=== PATIENT | male | born 1960 | race Caucasian/White ===

== ENCOUNTER 2017-10-17 08:53 | Inpatient (IN) ==
--- NOTE | 2017-10-17 17:38 | HP ---
Chief Complaint - Chief Complaint Date of Service: 10/17/17 Time of Service: 17:30 Chief Complaint: pneumothorax History of Present Illness: Bruce Mosley, is a 57-year-old white male, with previous medical history of tobacco dependency, COPD, who was admitted on 10/17/2017 because of pneumothorax. 4 weeks prior to admission, the patient developed left rib pain. Rib series and chest x-ray showed a pathologic fracture with a pulmonary nodule. The patient had a CT scan of the chest which confirmed the pulmonary nodule . A PET scan was done which showed increased activity of the pulmonary nodule and the rib fracture site. Today the patient underwent CTS guided lung biopsy and post procedure CXR showed pneumothorax. The patient was then admitted for observation. He is currently hemodynamically stable. - Patient's Past Medical History Patient History - Medical: Osteoarthritis, Other - Pathologic rib fracture, Herpes Zoster Patient History - Cardiac/Respiratory: COPD Patient History - Cancer: Other - Pulmonary Nodule Patient History - Surgical Procedures: Cholecystectomy, Other - knee surgery - Family History Mother Family History - Medical: No pertinent hx Family History - Cardiac/Respiratory: No pertinent hx Family History - Cancer: No pertinent family hx Father Family History - Medical: Diabetes Type 2, Other Family History - Cardiac/Respiratory: Coronary Heart Disease Family History - Cancer: Bone, Prostate - Social History Living Situations: spouse Abuse History: No History of abuse Psych History: No pertinent hx Does anyone smoke in the home?: Yes Smoking Status: Current every day smoker Have you smoked in the past 12 months: Yes Alcohol Use: other - former Review Of Systems (GEN) - Review of Systems Generalized/Overall Review: Absent: Chills, Fever Respiratory: Absent: Cough, Shortness of Breath Cardiac: Absent: Chest Pain, Palpitations Abdominal: Absent: Nausea, Vomiting Genitourinary: Absent: Urgency, Frequency Allergies/Adverse Reactions: Allergies Allergy/AdvReac Type Severity Reaction Status Date / Time No Known Allergies Allergy Unverified 10/17/17 17:36 Home Medications: HOME MEDICATIONS Budesonide/Formoterol Fumarate [Symbicort 160-4.5 Mcg Inhaler] 10.2 gm IH BID [Last Taken 10/17/17 08:00] Exam - Exam Constitutional: Present: Alert, Oriented x3, Cooperative ENT Exam: Present: hearing grossly normal Eye Exam: bilateral eye: normal inspection, PERRL, EOMI Neck: Present: supple Respiratory: Present: decreased breath sounds, No rales, No wheezing Cardiovascular/Chest: Present: regular rate, rhythm, no JVD, no murmur Abdomen: Present: Normal bowel sounds, soft, nontender, nondistended Extremity: Present: no pedal edema, no calf tenderness Diagnostic Studies: Laboratory Results PT 10.0 Seconds (9.0-11.0) 10/17/17 08:56 INR (Anticoag Therapy) 1.00 INR (0.90-1.10) 10/17/17 08:56 Assessment/Plan - Assessment/Plan (1) Pneumothorax of right lung after biopsy Assessment: will continue to montr patient. will sigh out to Hospitalist to repeat CXR if with any cardiopulmonary distress tonigh. Otherwise, I have already talked to Dr. Ashraf who will order a CXR in am. If continues to expand will do thoracostmy tube. Problem: Acute (2) COPD (chronic obstructive pulmonary disease) Assessment: will continue with his Symbicort. Problem: Chronic (3) Tobacco dependency Assessment: refuses nicotine patch. Problem: Chronic
[2017-10-17] MEDS: NICOTINE 21 MG PATC TD SCH (20:06)
--- NOTE | 2017-10-17 22:06 | PN ---
Progess Note - Interim Date: 10/17/17 Time: 22:03 Narrative: 10/17/17 22:03 patient was seen earlier and stated she was feeling fine, he however was taking very shallow breaths. Per nurse approximatly 2100 pt was hypoxic at 88-89% on 3L. Spoke with radiologist,Repeated CXR: showed pneumothorax was getting larger. Dr Ashraf aware and plans for chest tube insertion tomorrow.
[2017-10-17] MEDS: FLUTICASONE/SALMETEROL 14 PUFF DISK.W.DEV IH SCH (22:28)
--- NOTE | 2017-10-18 05:55 | PN ---
Subjective - Date and Time Seen Date: 10/18/17 Time: 05:49 Subjective Narrative: patient seen this morning with reports of having a hard time breathing, he his on supplemented oxygen 5L and spo2 90-92%. overnight repeated CXR showed increased pneumothorax and Dr Ashraf aware. he his schedule for another CXR this morning and plan for chest tube insertion. Dr Ashraf aware of pt reports that its getting harder to breath. Objective - Review of Systems Generalized/Overall Review: Reports: No Symptoms Reported EENTM: Reports: No Symptoms Reported Respiratory: Reports: Shortness of Breath Cardiac: Reports: No Symptoms Reported Abdominal: Reports: No Symptoms Reported Genitourinary Symptoms: Reports: No Symptoms Reported Musculoskeletal Complaints: Reports: No Symptoms Reported Neurological: Reports: No Symptoms Reported Skin: Reports: No Symptoms Reported Endocrine: Reports: No Symptoms Reported - Vitals Vitals: Last Vital Signs Temp 36.6 C 10/18/17 02:01 Pulse 57 L 10/18/17 02:01 Resp 18 10/18/17 02:01 BP 144/91 10/18/17 02:01 Pulse Ox 94 10/18/17 02:01 - Exam Constitutional: Present: Alert, Oriented x3, Cooperative, Well developed, Mild distress ENT Exam: Present: hearing grossly normal Neck: Present: non-tender, full range of motion Breasts: Present: Exam deferred Respiratory: Present: chest non-tender, no accessory muscle use, decreased breath sounds, wheezing Cardiovascular/Chest: Present: normal peripheral pulses, regular rate, rhythm, no chest tenderness, no edema Abdomen: Present: Normal bowel sounds, soft /Rectal: Present: Exam deferred Extremity: Present: normal range of motion, non-tender, normal inspection, no calf tenderness Skin Exam: Present: normal color, warm/dry, no cyanosis Lymphatic: Present: no adenopathy Neurologic: Present: normal mood/affect, oriented x 3 Appearance: Present: appropriate appearance, appropriate insight Eye contact: Present: cooperative, good eye contact Thoughts: Present: normal thought pattern Assessment/Plan - Problems/Diagnosis (1) COPD (chronic obstructive pulmonary disease) Problem: Chronic (2) Pneumothorax of right lung after biopsy Problem: Acute Narrative: Repeated CXR showed and 4.3cm pneumothorax no midline shift. Dr Ashraf to insert chest tube this morning Continue with supplemented oxygen smoking cessation edu and nicotine patch (3) Tobacco dependency Problem: Chronic
[2017-10-18] MEDS ORDERED: NICOTINE 21 MG PATC TD SCH ×2 (06:00→09:00)
[2017-10-18] MEDS: MORPHINE SULFATE 4 MG/ML SYRG IV PRN (07:44)
--- NOTE | 2017-10-18 07:45 | OR ---
Operative Report - Dictated Report Narrative: OPERATIVE REPORT DATE OF OPERATION: 10/18/2017 PREOPERATIVE DIAGNOSIS: Right pneumothorax following lung biopsy POSTOPERATIVE DIAGNOSIS: Same (relieved) OPERATION: Placement of right chest tube SURGEON: Gomez Ashraf MD ANESTHESIA: Local 0.5% Marcaine with epinephrine INDICATIONS FOR PROCEDURE: The patient is a 57-year-old male who underwent CT guided needle biopsy of a right lung nodule yesterday. He developed a small pneumothorax which has progressed on serial chest x-rays. FINDINGS: Successful tube placement with reexpansion NARRATIVE OF PROCEDURE: The patient was identified preoperatively and a timeout was taken. The patient's right chest was prepped with chlorhexidine and a point chosen in the anterior axillary line for tube insertion. The skin and subcutaneous tissue and periosteum of the chest and rib were infiltrated with 0.5% Marcaine with epinephrine. A 1 cm skin incision was made. A 20 Sami trocar catheter was then placed in the right chest and directed anteriorly and superiorly. It was connected to underwater seal with immediate release of air. The tube was secured to the skin with a 0 silk suture and dressed with sterile gauze and Medipore tape. Patient tolerated the procedure well. There was no measurable blood loss. A postprocedure chest x-ray demonstrated good tube position with right lung reexpansion. Reviewed and electronically signed
--- NOTE | 2017-10-18 08:20 | PN ---
Margos Note - Interim Date: 10/18/17 Time: 08:15 Narrative: 10/18/17 08:11 RADIOLOGIST PROGRESS NOTE: Patient was in bed, with head up, seems to be in good spirits, complaining of no acute symptoms at the time when seen by me. Patient s/p right sided chest tube placement by Dr. Ashraf for worsening right pneumothorax s/p CT guided right upper lobe biopsy of a spiculated, PET positive suspicious nodule. Patient states he feels much better after the chest tube placement, became more symptomatic last night. Patient was in no acute distress. The dressing on the right upper chest appears to be clean, dry, and intact. Vital signs reviewed with no concerning finding. This morning's CXR was reviewed by me, although final interpretation/report pending from on-call radiologist. It shows placement of right sided chest tube, with significantly decreased pneumothorax compared to the CXR from yesterday evening. Discussed with patient that pneumothorax is a known complication of CT guided biopsy, and although most can be managed conservatively, minority of cases can progress where intervention is necessary (as discussed prior to the biopsy procedure). I felt that it was right course of action to admit for observation and place chest tube when determined that it was not improving. Patient expressed understanding. Addressed questions regarding management of tube, and I stated that the chest tube management will be primarily done by Dr. Ashraf, and I would defer to his expertise. Addressed all questions regarding the biopsy. Will continue to follow along with primary care team and attending surgeon. Biopsy results still pending at this time. 10/18/17 08:20
[2017-10-18] MEDS: oxyCODONE HCL/ACETAMINOPHEN 1 TAB TABLET PO PRN ×4 (08:22→20:57)
[2017-10-18] MEDS ORDERED: FLUTICASONE/SALMETEROL 14 PUFF DISK.W.DEV IH SCH (09:45)
[2017-10-18] MEDS: ENOXAPARIN SODIUM 40 MG/0.4 ML SYRG SC SCH (10:21)
[2017-10-18] MEDS: NON-FORMULARY 1 DOSE DOSE INH SCH ×2 (10:21→20:58)
[2017-10-18] MEDS: FLUTICASONE/SALMETEROL 14 PUFF DISK.W.DEV IH SCH (10:36)
[2017-10-18] MEDS: NICOTINE 21 MG PATC TD SCH (20:06)
[2017-10-19] MEDS: oxyCODONE HCL/ACETAMINOPHEN 1 TAB TABLET PO PRN ×2 (01:23→10:51)
[2017-10-19 04:33] LABS: Hematocrit 43.7 % (42.0-52.0); Hemoglobin 14.9 gm/dL (13.5-18.0); Mean Cell Volume 99.8 fl (78-100); Mean Corpuscular Hgb Conc 34.1 g/dl (32-36); Mean Platelet Volume 10.1 fl (8-11.3); Neutrophil # 4.1 K/mm3 (1.3-6.0); Neutrophil % 57.6 % (42-75.0); Platelet Count 192 K/mm3 (150-450); Red Blood Count 4.38 M/mm3 (4.7-6.0); White Blood Count 7.1 K/mm3 (4.0-10.5)
[2017-10-19 04:46] LABS: Albumin * 3.2 gm/dl (3.4-5.0); Anion Gap 10.1 mmol/L (6.8-13.8); BUN/Creatinine Ratio 12.3 (9.0-21.6); Bilirubin, Total 1.2 mg/dL (0.0-1.1); Ca. Corrected For Albumin 8.9 mg/dL (8.4-10.2); Calcium * 8.6 mg/dL (7.9-10.9); Carbon Dioxide 30.7 mmol/L (24-32.6); Potassium 3.8 mmol/L (3.4-4.6); Total Protein 6.6 gm/dL (6.2-8.2)
--- NOTE | 2017-10-19 06:23 | PN ---
Subjective - Date and Time Seen Date: 10/19/17 Time: 06:17 Subjective Narrative: Patient seen today feeling better and denies shortness of breath. He stated he has pain at the site of the chest tube.per nurse over nigth he desat 88-89% while on room air, he was placed on 1L nasal cannula and saturation 90-92%. pt anticipating repeat CXR this morning. Objective - Review of Systems Generalized/Overall Review: Reports: No Symptoms Reported EENTM: Reports: No Symptoms Reported Respiratory: Reports: Cough Cardiac: Reports: No Symptoms Reported Abdominal: Reports: No Symptoms Reported Genitourinary Symptoms: Reports: No Symptoms Reported Musculoskeletal Complaints: Reports: No Symptoms Reported Neurological: Reports: No Symptoms Reported Skin: Reports: No Symptoms Reported Endocrine: Reports: No Symptoms Reported - Vitals Vitals: Last Vital Signs Temp 36.6 C 10/19/17 04:51 Pulse 66 10/19/17 04:51 Resp 18 10/19/17 04:51 BP 122/70 10/19/17 04:51 Pulse Ox 96 10/18/17 23:15 - Abnormal Lab Findings Abnormal Lab Findings: Abnormal Lab Results 10/19/17 10/19/17 Range/Units 04:30 04:30 RBC 4.38 L (4.7-6.0) M/mm3 MCH 34.0 H (27-31) pg Monocytes % 10.5 H (0.0-9) % Total Bilirubin 1.2 H (0.0-1.1) mg/dL AST 238 H (0-48) U/L ALT 234 H (19-67) U/L Albumin 3.2 L (3.4-5.0) gm/dl - Exam Constitutional: Present: Alert, Oriented x3, Cooperative, Well nourished, Middle aged, Looks Younger than stated age ENT Exam: Present: hearing grossly normal Neck: Present: non-tender, full range of motion Breasts: Present: Exam deferred Respiratory: Present: chest non-tender, normal breath sounds - left lungs, right lungs diminshed, no respiratory distress, no accessory muscle use, decreased breath sounds, other - right chest tube Cardiovascular/Chest: Present: normal peripheral pulses, regular rate, rhythm, no chest tenderness, no edema Abdomen: Present: Normal bowel sounds, soft, nontender, nondistended /Rectal: Present: Exam deferred Extremity: Present: normal range of motion, non-tender, normal inspection, no pedal edema Skin Exam: Present: normal color, warm/dry, no cyanosis Neurologic: Present: normal mood/affect, oriented x 3 Appearance: Present: appropriate appearance, appropriate insight Eye contact: Present: cooperative, good eye contact Thoughts: Present: normal thought pattern Assessment/Plan - Problems/Diagnosis (1) COPD (chronic obstructive pulmonary disease) Problem: Chronic Narrative: continue with symbicort Supplemented oxygen (2) Pneumothorax of right lung after biopsy Problem: Acute Narrative: POD#1 PREOPERATIVE DIAGNOSIS: Right pneumothorax following lung biopsy POSTOPERATIVE DIAGNOSIS: Same (relieved) OPERATION: Placement of right chest tube Supplemented oxygen overnight because oxygen saturation dropped while on room air to 88-89% This morning while on oxygen 91-92% at 1L nasal cannula (3) Tobacco dependency Problem: Chronic Narrative: Nicotine patch
[2017-10-19] MEDS: MORPHINE SULFATE 4 MG/ML SYRG IV PRN (06:37)
[2017-10-19] MEDS ORDERED: BISACODYL 5 MG TABLET.DR PO ONE (08:40)
--- NOTE | 2017-10-19 08:45 | PN ---
Dictated Progress Note - Date and Time Seen: Date: 10/19/17 Time: 08:44 - Progress Note Narrative: Vital Signs - Last Taken Temp 36.6 C 10/19/17 04:51 Pulse 57 L 10/19/17 06:00 Resp 18 10/19/17 04:51 BP 122/70 10/19/17 04:51 Pulse Ox 96 10/19/17 08:09 Abnormal/Pending Laboratory Last 24 HRS 10/19/17 10/19/17 04:30 04:30 RBC 4.38 L MCH 34.0 H Monocytes % 10.5 H Total Bilirubin 1.2 H AST 238 H ALT 234 H Albumin 3.2 L Apical pneumothorax smaller. Will clamp chest tube and recheck CXR mid day. No BM yesterday and c/o gas. Will give dulcolax.
[2017-10-19] MEDS ORDERED: BISACODYL 5 MG TABLET.DR ONE (10:50)
[2017-10-19] MEDS: ENOXAPARIN SODIUM 40 MG/0.4 ML SYRG SC SCH (10:52)
[2017-10-19] MEDS: NON-FORMULARY 1 DOSE DOSE INH SCH (10:52)
--- NOTE | 2017-10-19 13:51 | PN ---
Dictated Progress Note - Date and Time Seen: Date: 10/19/17 Time: 13:48 - Progress Note Narrative: Vital Signs - Last Taken Temp 36.7 C 10/19/17 11:53 Pulse 71 10/19/17 12:45 Resp 18 10/19/17 11:53 BP 120/73 10/19/17 11:53 Pulse Ox 98 10/19/17 11:53 Abnormal/Pending Laboratory Last 24 HRS 10/19/17 10/19/17 04:30 04:30 RBC 4.38 L MCH 34.0 H Monocytes % 10.5 H Total Bilirubin 1.2 H AST 238 H ALT 234 H Albumin 3.2 L Most recent CXR shows resolution of apical pneumothorax even with chest tube clamped indicating that the leak has sealed. Chest tube removed, mepilex border applied Instructed him and his on care: keep dry and covered. Cell phone # given for questions or concerns To call office on Friday for f/u appointment 10/24/17
--- NOTE | 2017-10-19 14:28 | DS ---
(1) Pneumothorax of right lung after biopsy Problem: Acute (2) COPD (chronic obstructive pulmonary disease) Problem: Chronic (3) Tobacco dependency Problem: Chronic Description of Stay: Bruce Mosley, is a 57-year-old white male, with previous medical history of tobacco dependency, COPD, who was admitted on 10/17/2017 because of pneumothorax. 4 weeks prior to admission, the patient developed left rib pain. Rib series and chest x-ray showed a pathologic fracture with a pulmonary nodule. The patient had a CT scan of the chest which confirmed the pulmonary nodule . A PET scan was done which showed increased activity of the pulmonary nodule and the rib fracture site. On the day of admission, the patient underwent CTS guided lung biopsy and post procedure CXR showed pneumothorax. The patient desaturated overnight and followup CXR showed further expansion of the pneumonthorax. Dr. Ashraf was consulted and he put in a thoracostomy tube. The patient remained hemodynamically stable. he tube was removed today after follow CXR showed resolution of apical pneumothorax. He is stable to go home today and follow up with Dr. Ashraf and his PCP next week. Procedures Performed: see notes below - thoracostomy tube placement and then removal Discharge Location: Home Disposition: Home self-care Condition: Good Discharge Activity: Activity as tolerated Discharge Diet: General/regular food Additional Patient Instructions (free text): Follow up with Dr. Ashraf per didier. Follow up with his PCP , next week. Prescriptions (Any new or edited meds): Acetaminophen [Tylenol] 650 mg PO Q4H PRN #30 tab PRN Reason: Pain Nicotine [Nicoderm] 21 mg TD Q24H 40 Days #40 patch.[email or web address] Complete Home Medications List: Complete Home Medication List: Budesonide/Formoterol Fumarate [Symbicort 160-4.5 Mcg Inhaler] 10.2 gm IH BID Acetaminophen [Tylenol] 650 mg PO Q4H PRN #30 tab 10/19/17 Nicotine [Nicoderm] 21 mg TD Q24H 40 Days #40 patch.[email or web address] 10/19/17
[2017-10-19 14:51] VITALS: BP 137/73
== END 2017-10-19 15:10 | disposition home or self-care (01) | DRG 201 ==
LOC: LAB 08:53 → MS 16:36 → OBSVTOIN 10-18 08:49
PROVIDERS: ADMIT Internal Medicine; ATTEND Internal Medicine
DX: Y82.8 Other medical devices associated with adverse incidents; Y92.538 Other ambulatory health services establishments as the place of occurrence of the external cause; F17.210 Nicotine dependence, cigarettes, uncomplicated; Y84.8 Other medical procedures as the cause of abnormal reaction of the patient, or of later complication, without mention of misadventure at the time of the procedure; J95.811 Postprocedural pneumothorax; R91.1 Solitary pulmonary nodule
CPT/HCPCS: 32405; 36415; 71010; 71020; 71045; 71046; 77012; 80053; 85025; 85610; 88305; 88329; 88333; 88341; 88342; G0378